=== PATIENT | female | born 1990 | race Hispanic/Latino ===

== ENCOUNTER 2021-06-29 17:16 | Emergency (ER) | payer MEDICAID ==
[~2021-06-29] VITALS: Ht 157.5 cm; Wt 83.9 kg
[2021-06-29 17:18] VITALS: BP 142/80
[2021-06-29] MEDS ORDERED: OCTYL 2-CYANOACRYLATE 1 EACH TP ONE (17:28)
[2021-06-29] MEDS ORDERED: TETANUS/DIPHTHERIA TOXOID [ADULT] 0.5 ML VIAL IM ONE (17:30)
== END 2021-06-29 17:53 | disposition home or self-care (01) ==
LOC: EDBD 17:16 → EDH 17:16
DX: S61.012A Laceration without foreign body of left thumb without damage to nail, initial encounter (principal); W26.8XXA Contact with other sharp object(s), not elsewhere classified, initial encounter; Y93.89 Activity, other specified; Y92.89 Other specified places as the place of occurrence of the external cause; Y99.8 Other external cause status
CPT/HCPCS: 12001; 90714; 99282